=== PATIENT | female | born 1935 | race Caucasian/White ===

== ENCOUNTER 2018-06-16 11:10 | Inpatient (IN) | payer OTHER ==
[~2018-06-16] VITALS: Ht 144.8 cm; Wt 57.6 kg
[2018-06-16 11:14] VITALS: BP 132/62
[2018-06-16] MEDS ORDERED: EFFEXOR XR37.5 MG PO (11:24)
[2018-06-16] MEDS ORDERED: CLARITIN10 MG PO (11:24)
[2018-06-16] MEDS ORDERED: LASIX 40 MG TAB40 M2 PO (11:24)
[2018-06-16] MEDS ORDERED: GABAPENTIN 100100 MG PO (11:24)
[2018-06-16] MEDS ORDERED: NORVASC5 MG PO (11:25)
[2018-06-16] MEDS ORDERED: ASPIR 8181 MG PO (11:25)
[2018-06-16] MEDS ORDERED: LISINOPRIL40 MG PO (11:25)
[2018-06-16] MEDS ORDERED: TESSALON PERLE100 MG PO (11:26)
[2018-06-16] MEDS ORDERED: HYDRALAZINE 2525 MG PO (11:26)
[2018-06-16] MEDS ORDERED: ACETAMINOPHEN-1 EAC1 PO (11:27)
[2018-06-16] MEDS ORDERED: COLACE100 MG PO (11:27)
[2018-06-16 11:46] LABS: ABSOLUTE BASOPHILS 0.1 thou/uL (0.0-0.2); ABSOLUTE EOSINOPHILS 0.2 thou/uL (0.0-0.7); ABSOLUTE LYMPHOCYTES 1.3 thou/uL (0.8-5.3); ABSOLUTE MONOCYTES 0.6 thou/uL (0.0-1.2); ABSOLUTE NEUTROPHILS 4.9 thou/uL (1.6-8.1); BASOPHILS 0.9 %; EOSINOPHILS 2.6 %; HEMATOCRIT 39.3 % (37.0-47.0); HEMOGLOBIN 13.1 gm/dL (12.0-15.0); LYMPHOCYTES 18.4 %; MCH 32.4 pg (26.0-34.0); MCHC 33.3 g/dL (28.0-37.0); MCV 97.4 fL (80.0-100.0); MONOCYTES 8.4 %; MPV 7.4 fl. (7.2-11.1); NUCLEATED RBCS 0 /100WBC; PLATELET COUNT* 265 thou/uL (150-400); POLYS 69.7 %; RBC 4.04 mil/uL (4.20-5.00); RDW-CV 14.4 % (10.5-14.5); WBC 7.1 thou/uL (4.0-11.0)
[2018-06-16 11:57] LABS: CALCIUM 8.5 mg/dL (8.5-10.1); CREATININE 1.1 mg/dL (0.6-1.3); POTASSIUM 4.4 mmol/L (3.5-5.1)
[2018-06-16 11:58] LABS: APTT 21.2 Seconds (25.0-31.3); PROTIME 10.2 Seconds (9.20-11.50)
[2018-06-16 12:16] LABS: ALBUMIN 3.2 g/dL (3.4-5.0); CK-MB MASS 2.4 ng/mL (<0.5-3.6); MAGNESIUM 1.9 mg/dL (1.8-2.4); TOTAL BILIRUBIN 0.3 mg/dL (<0.1-1.0); TOTAL PROTEIN 6.3 g/dL (6.4-8.2); TROPONIN-I LEVEL 0.06 ng/mL (<0.06)
--- NOTE | 2018-06-16 15:10 | EKG ---
[place] [address] ELECTROCARDIOGRAM REPORT Name: SURYA RIZVI Room: [place] [address] ADM IN M.R.#: [id number] Admission: 06/16/18 Attend Phys: Emory Hyman MD Discharge: Date of : 35 Report #: [id number] THIS REPORT FOR: //name// [facility] ED Test Date: 2018-06-16 Test Time: 11:16:54 Pat Name: SURYA WEBB Department: Room: [facility] Gender: F Office Services Clerk: Pat MONTERO : 1935 Requested By: Shun Gan Order Number: [id number] MD: Vikash Cook Measurements Intervals [place] Rate: 83 P: -1 NJ: 275 QRS: -82 QRSD: 125 T: 96 QT: 369 QTc: 434 Interpretive Statements Sinus rhythm Prolonged NJ interval Right bundle branch block and left anterior fasicular block LVH with IVCD and secondary repol abnrm Baseline wander in lead(s) V4 Compared to ECG 05/03/2012 22:21:11 First degree AV block now present Right bundle-branch block now present Prolonged QT interval no longer present Electronically Signed On 06-16-2018 15:10:44 CABLE SPLICER APPRENTICE by Vikash Cook [email or web address] <ELECTRONICALLY SIGNED> By: Vikash Cook MD, [facility] 06/16/18 1510 1116 1116 Vikash Cook MD, [facility] /EPI
[2018-06-16 16:14] VITALS: BP 133/58
[2018-06-16 16:30] VITALS: BP 171/68
[2018-06-16 20:00] VITALS: BP 115/54
[2018-06-16 21:06] LABS: GLYCOHEMOGLOBIN (HGB A1C) 5.6 % (4.8-5.6)
[2018-06-17] VITALS: BP 126/54
[2018-06-17 04:00] VITALS: BP 123/52
[2018-06-17 05:07] LABS: ABSOLUTE BASOPHILS 0.1 thou/uL (0.0-0.2); ABSOLUTE EOSINOPHILS 0.3 thou/uL (0.0-0.7); ABSOLUTE LYMPHOCYTES 2.3 thou/uL (0.8-5.3); ABSOLUTE MONOCYTES 0.9 thou/uL (0.0-1.2); ABSOLUTE NEUTROPHILS 4.5 thou/uL (1.6-8.1); BASOPHILS 0.7 %; EOSINOPHILS 3.6 %; HEMATOCRIT 32.9 % (37.0-47.0); HEMOGLOBIN 11.2 gm/dL (12.0-15.0); LYMPHOCYTES 28.5 %; MCH 32.8 pg (26.0-34.0); MCHC 33.9 g/dL (28.0-37.0); MCV 96.6 fL (80.0-100.0); MONOCYTES 11.1 %; MPV 7.4 fl. (7.2-11.1); NUCLEATED RBCS 0 /100WBC; PLATELET COUNT* 235 thou/uL (150-400); POLYS 56.1 %; RBC 3.41 mil/uL (4.20-5.00); RDW-CV 14.5 % (10.5-14.5); WBC 7.9 thou/uL (4.0-11.0)
[2018-06-17 05:29] LABS: CALCIUM 8.2 mg/dL (8.5-10.1); POTASSIUM 4.4 mmol/L (3.5-5.1)
[2018-06-17 05:37] LABS: CHOLESTEROL 172 mg/dL (<200); HDL CHOLESTEROL 49 mg/dL (>40); LDL CHOLESTEROL 92 mg/dL (<100); TC:HDL 3.5 Ratio (Not establshd); TRIGLYCERIDE 159 mg/dL (<150); VLDL 32 mg/dL (<40)
[2018-06-17 05:53] LABS: SERUM ASSESSMENT CLEAR
[2018-06-17 08:00] VITALS: BP 154/73
--- NOTE | 2018-06-17 13:48 | 2DMMODE ---
[place] [address] 2 D/M-MODE ECHOCARDIOGRAM Name: RIZVI,SURYA M Room: [address] IN .R.#: [id number] Admission: 06/16/18 Attend Phys: Emory Hyman, Discharge: Date of : 35 Date of Service: 06/17/18 1347 Report #: [id number] THIS REPORT FOR: //name// APPROVED REPORT Study performed: 06/17/2018 09:33:49 EXAM: Comprehensive 2D, Doppler, and color-flow Echocardiogram Patient Location: Bedside BSA: 1.48 HR: 75 bpm BP: 132/62 mmHg Other Information Study Quality: Good Indications Dizziness and Vertigo 2D Dimensions IVSd: 12.65 (7-11mm) LVOT Diam: 16.37 (18-24mm) LVDd: 40.06 mm PWd: 10.56 (7-11mm) Ascending Ao: 33.98 (22-36mm) LVDs: 27.88 (25-40mm) Aortic Root: 34.47 mm Volumes Left Atrial Volume (Systole) LA ESV Index: 48.40 mL/m2 Aortic Valve AoV Peak Laith.: 2.04 m/s AO Peak Gr.: 16.68 mmHg LVOT Max P.00 mmHg AO Mean Gr.: 9.05 mmHg LVOT Mean P.65 mmHg LVOT Max V: 0.87 m/s AO V2 VTI: 39.34 cm LVOT Mean V: 0.60 m/s TEMO (VTI): 1.02 cm2 LVOT V1 VTI: 19.13 cm Mitral Valve E/A Ratio: 0.59 MV Decel. Time: 304.58 ms MV E Max Laith.: 0.94 m/s MV PHT: 88.33 ms MVA (PHT): 2.49 [place] [address] 2 D/M-MODE ECHOCARDIOGRAM Name: SURYA RIZVI Room: [address] IN .R.#: [id number] Admission: 06/16/18 Attend Phys: Emory Hyman, Discharge: Date of : 35 Date of Service: 06/17/18 1347 Report #: [id number] TDI E/Lateral E': 11.75 E/Medial E': 23.50 Medial E' Laith.: 0.04 m/s Lateral E' Laith.: 0.08 m/s Pulmonary Valve PV Peak Laith.: 0.80 m/s PV Peak Gr.: 2.53 mmHg Tricuspid Valve RAP Estimate: 5.00 mmHg TR Peak Gr.: 14.69 mmHg RVSP: 19.69 mmHg PA Pressure: 19.69 mmHg Left Ventricle The left ventricle is normal size. There is normal LV segmental wall motion. Mild concentric left ventricular hypertrophy. Left ventricular systolic function is normal. LVEF is 60-65%. Grade I - abnormal relaxation pattern. Right Ventricle The right ventricle is normal size. The right ventricular systolic function is normal. Atria Left atrium is mildly dilated. The right atrium size is normal. Aortic Valve The Aortic valve is sclerotic. Mild aortic regurgitation. Mild aortic stenosis. Mitral Valve There is mitral annular calcification. Trace mitral regurgitation. No evidence of mitral valve stenosis. Tricuspid Valve The tricuspid valve is normal in structure. Trace tricuspid regurgitation. Pulmonic Valve The pulmonary valve is normal in structure. There is no pulmonic valvular regurgitation. Great Vessels The aortic root is normal in size[place] [address] 2 D/M-MODE ECHOCARDIOGRAM Name: SURYA RIZVI Room: [address] IN [facility]#: [id number] Admission: 06/16/18 Attend Phys: Emory Hyman, Discharge: Date of : 35 Date of Service: 06/17/18 1347 Report #: [id number] visualized. Pericardium There is no pericardial effusion. <Conclusion> The left ventricle is normal size. Mild concentric left ventricular hypertrophy. Left ventricular systolic function is normal. LVEF is 60-65%. Grade I - abnormal relaxation pattern. Left atrium is mildly dilated. The Aortic valve is sclerotic. Mild aortic regurgitation. Mild aortic stenosis. Trace mitral regurgitation. There is mitral annular calcification. Trace tricuspid regurgitation. <ELECTRONICALLY SIGNED> By: David Lopez MD, FACC 06/17/18 1347 1347 134 David Lopez MD, FACC /INF
[2018-06-17 16:26] VITALS: BP 102/52
[2018-06-17 17:50] VITALS: BP 102/52
[2018-06-17] MEDS ORDERED: ANTIVERT25 MG PO (18:23)
--- NOTE | 2018-06-19 10:16 | CON ---
[address] [address] CONSULTATION Name: RIZVIVERITOSURYA M Room: [address] IN M.R.#: [id number] Admission: 06/16/18 Attend Phys: Emory Hyman MD Discharge: 06/17/18 Date of : 35 Report #: [id number] THIS REPORT FOR: //name// CC: Emory Hyman Physician staff [facility] HISTORY OF PRESENT ILLNESS: The patient is an 83-year-old female who awoke on with a spinning sensation. She states that she has had dizziness before, but nothing so severe. It felt as though she were going down an elevator and spinning at the same time. Today, she is already feeling better. The patient actually lives in [place] and is visiting her daughter until 06/29/2018. After that, she will go back home to [place] and leave for [facility]. She will be there for 6 weeks. PAST MEDICAL HISTORY: SVT, congestive heart failure, hypertension and colon cancer. PAST SURGICAL HISTORY: Appendectomy, cholecystectomy, hysterectomy and colon resection. MEDICATIONS: At home, loratadine 10 mg daily, furosemide 40 mg daily, Neurontin 100 mg t.i.d., venlafaxine 37.5 mg at bedtime, lisinopril 40 mg daily, amlodipine 5 mg daily, aspirin 81 mg daily, Colace 100 mg p.r.n. and Tylenol No. 3 p.r.n. ALLERGIES: None. VITAL SIGNS: Blood pressure 154/73, heart rate 87, temperature is 36.9 and respiratory rate 18. LABORATORY DATA: Hematology: White blood cell count 7.9, hemoglobin 11.2, hematocrit 32.9, MCV 96.6 and platelet count 235,000. INR 1. Chemistry: Sodium 140, potassium 4.4, chloride 107, carbon dioxide 26, BUN 31, creatinine 1, GFR 53 and glucose 83. Hemoglobin A1c 5.6. Calcium 8.2, magnesium 1.9. Total bilirubin 0.3, AST 19, ALT 19 and alkaline phosphatase 58. Creatinine kinase 50. Triglycerides 159, cholesterol 172, LDL cholesterol 92 and HDL cholesterol 49. IMAGING STUDIES: MRI of the head demonstrates mild microvascular disease and cerebral atrophy. 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 MR angiography of the neck is unremarkable Carotid ultrasound of the neck is unremarkable. NEUROLOGICAL EXAMINATION: Cranial nerves 2-12 are grossly intact. Motor exam demonstrates symmetrical strength in all 4 extremities, [place] [address] CONSULTATION Name: SURYA RIZVI Room: [address]#: [id number] Admission: 06/16/18 Attend Phys: Emory Hyman MD Discharge: 06/17/18 Date of : 35 Report #: [id number] normal. Reflexes are symmetrical throughout. Coordination demonstrates no evidence of dysmetria. IMPRESSION AND PLAN: This patient has vertigo. I explained to the patient this is most likely peripheral in nature. She could be sent home with meclizine 12.5 mg 3 times a day as needed. I discussed the Valium with her, but she does not want this. The MR angiography also demonstrates a small 3-mm aneurysm and this should be evaluated by a neurosurgeon as an outpatient. I thank you for your kind referral of this patient. <ELECTRONICALLY SIGNED> By: Vero Major DO 06/19/18 1016 1234 [id number] Major DO /nt
== END 2018-06-17 21:10 | disposition home or self-care (01) | DRG 149 ==
LOC: M.ERS 11:10 → M.TBA-ER 12:06 → M.2W 12:06
PROVIDERS: Family Medicine; ADMIT Internal Medicine
DX: R42 Dizziness and giddiness (principal); I50.32 Chronic diastolic (congestive) heart failure; I11.0 Hypertensive heart disease with heart failure; E86.0 Dehydration; I72.9 Aneurysm of unspecified site; Z85.038 Personal history of other malignant neoplasm of large intestine; Z90.710 Acquired absence of both cervix and uterus; Z90.49 Acquired absence of other specified parts of digestive tract